=== PATIENT | female | born 1955 | race Caucasian/White ===

== ENCOUNTER 2023-12-15 14:31 | Emergency (ER) | payer MEDICARE, OTHER, SELFPAY ==
[2023-12-15 14:40] VITALS: BP 102/74
[2023-12-15 15:02] LABS: % Basophils 0.4 % (0-2); % Eosinophils 0.5 % (0-6); % Immature Granulocytes 0.3 % (0-0.5); % Monocytes 6.3 % (1.7-9.3); % Neutrophils 64.5 % (42.2-75.2); Absolute Lymphocytes 2.1 10^3/uL (1.2-3.4); Absolute Monocytes 0.5 10^3/uL (0.1-0.6); Absolute Neutrophils 4.9 10^3/uL (1.4-6.5); Hematocrit 34.9 % (37.0-47.0); Hemoglobin 12.6 g/dL (12.0-16.0); Mean Corp Hgb Conc. 36.1 g/dL (33.0-37.0); Mean Corpuscular Hgb 30.6 pg (27.0-31.0); Mean Corpuscular Volume 84.7 fL (81.0-99.0); Mean Platelet Volume 9.5 fL (7.4-10.4); Nucleated Red Blood Cells % 0 %; Platelet Count 286 10^3/uL (130-400); Red Blood Cell Count 4.12 10^6/uL (4.20-5.40); Red Cell Dist. Width 12.7 % (11.5-14.5); White Blood Cell Count 7.6 10^3/uL (4.8-10.8)
[2023-12-15 15:18] LABS: ALT (SGPT) 33 U/L (0-35); AST (SGOT) 42 U/L (14-36); Albumin 4.5 g/dl (3.5-5.0); Alkaline Phosphatase 140 U/L (38-126); Blood Urea Nitrogen 23 mg/dl (7-17); Calcium 9.4 mg/dl (8.4-10.2); Carbon Dioxide 20 mmol/L (22-30); Chloride 104 mmol/L (98-107); Glucose 142 mg/dl (70-99); Potassium 3.1 mmol/L (3.5-5.1); Sodium 133 mmol/L (135-145); Total Bilirubin 0.8 mg/dl (0.2-1.3); Total Protein 7.3 g/dl (6.3-8.2); eGFR > 60.00
[2023-12-15 15:22] LABS: COVID-19 Antigen Negative (Negative)
[2023-12-15 15:48] LABS: TSH Reflex To Free T4 1.36 uIU/ml (0.47-4.68)
[2023-12-15 16:00] VITALS: BMI 27.9
[2023-12-15] MEDS: KCL ELIXIR 40 MEQ PO (16:39)
--- NOTE | 2023-12-15 17:15 | ED.GENMED ---
History of Present Illness
General
Chief Complaint: Anxiety
Source: patient and spouse
Exam Limitations: none
Time Seen by Provider: 12/15/23 16:12
Travel History
Have you had any contact with someone who has COVID-19?: No
Do you have any symptoms of coronavirus? Fever > 100 degrees, chills, cough, shortness of breath, sore throat, loss of taste or smell, muscle aches, or headache?: No
History of Present Illness
History of Present Illness:
This is a 68-year-old female who was getting her hair done when she started to feel nervous and shaky and felt overwhelmed. She states she has been under a lot of stress recently because of her medical problems. Patient states that as she
sat there for a long period of time she just cannot handle it anymore. Patient states she felt like this for about an hour before she said she had to get out of there. She does admit to nausea and vomiting feels much better on my evaluation after
she vomited. Patient does have a history of vertigo. Patient states that she feels much better laying flat. She denies room spinning dizziness however. No motor weakness. No headache. No palpitations. No chest pain. No shortness of breath.
Past History
Past History
ED Past Medical History: HTN and Other (Vertigo)
ED Past Surgical History: Gynecological
Social History
Tobacco: Non-smoker
Alcohol: None
Drug: None
Personal:
Living: with family
Phy Exam
Physical Exam
Physical Exam:
CONSTITUTIONAL Patient alert and oriented to person, place and time. Well-appearing. Vital signs reviewed.
HEAD atraumatic, normocephalic.
EYES eyelids normal to inspection, Pupils equally round and reactive to light, Extraocular muscles intact, Conjunctiva normal, Sclera normal.
NECK normal range of motion, Trachea midline, no jugular venous distention.
RESPIRATORY CHEST No respiratory distress noted, Chest expansion equal, Bilateral breath sounds clear.
CARDIOVASCULAR regular rate and rhythm, Heart sounds normal.
ABDOMEN abdomen nontender, Bowel sounds normal. No distention.
BACK normal inspection, no obvious deformities
UPPER EXTREMITY range of motion normal, Motor strength normal, no cyanosis, no edema.
LOWER EXTREMITY range of motion normal, Motor strength normal, no cyanosis, no edema.
NEURO Speech normal, No focal motor deficits, Ritika coma scale 15, Memory normal, Cranial Nerves intact to screening exam. Normal [id number].. No pronator drift
SKIN skin warm, dry, and normal in color.
PSYCHIATRIC patient oriented to person place and time, Normal affect.
Course
Orders/Labs/Results
Orders:
Orders
12/15/23 14:54
COVID-19 Antigen Urgent
Source: Nasal Swab
Complete Blood Count/With Diff Urgent
Comprehensive Metabolic Panel Urgent
TSH Reflex To Free T4 Urgent
Influenza A+B Rapid Molecular Urgent
WILI Source: Nasal Swab
Specimen Description:
12/15/23 16:23
Electrocardiogram (*1) Urgent
Reason for Study: Other
Other Reason for Exam: nausea
EKG- Treatment ONCE
12/15/23 16:28
Potassium Chloride 10% Elixir [KCl Elixir] 40 meq PO NOW STA
Abnormal Lab Results
12/15/23
14:54
RBC 4.12 L 10^6/uL
(4.20-5.40)
Hct 34.9 L %
(37.0-47.0)
Sodium 133 L mmol/L
(135-145)
Potassium 3.1 L mmol/L
(3.5-5.1)
Carbon Dioxide 20 L mmol/L
(22-30)
BUN 23 H mg/dl
(7-17)
Glucose 142 H mg/dl
(70-99)
AST 42 H U/L
(14-36)
Alkaline Phosphatase 140 H U/L
(38-126)
12/15/23 14:54
12/15/23 14:54
Vital Signs
Initial and Last Documented VS:
Initial Vital Signs
Temp Pulse Resp BP Pulse Ox
97.7 F 69 20 102/74 100
12/15/23 14:40 12/15/23 14:40 12/15/23 14:40 12/15/23 14:40 12/15/23 14:40
Last Documented Vital Signs
Temp Pulse Resp BP Pulse Ox
97.7 F 69 20 102/74 100
12/15/23 14:40 12/15/23 14:40 12/15/23 14:40 12/15/23 14:40 12/15/23 14:40
MDM/Problems Addressed
Differential Diagnosis Includes:
Vertigo, anxiety attack, arrhythmia, dehydration, CVA
MDM/Problems Addressed:
Vomiting, anxiety, hypokalemia, dehydration
*Pulse Oximetry
Patient hypoxic: no
*EKG
Interpreted by ED Provider?: Yes
Rate: normal
Rhythm: sinus
[place]: normal axis
QRS Pattern: normal QRS
Ischemia: non-specific ST changes
*Critical Care Note
Total Time (30-74mins, 75-104mins- exclusive of procedures): Not Applicable
Data Reviewed
Source: patient and spouse
Prescriptions/Medications Considered But Not Given:
Considered meclizine but patient would like to refrain from medications as she states she is sensitive and feeling better
Further Testing Considered But Not Given:
Consider head CT but no focal findings. No focal neurologic symptoms actually.
Patient Management
Escalation/DeEscalation of care consider admission/obs:
Patient peers well. Normal neuroassessment. No clinical concern for acute coronary event or CVA. Question whether this is a mild vertigo from having her head in a position related to getting her hair done. I did offer medications but patient
would like to hold off. Replace her potassium. She is on hydrochlorothiazide. Will replace potassium and provide supplement for the next 1 week but advised her to follow-up with her PCP
ED Attending Note
-
Portions of this chart may have been created with voice recognition software.� Occasional wrong word or��sound alike� substitutions may have occurred due to the inherent limitations of voice recognition software.
Discharge Plan
Departure
Patient Disposition: Home (Routine Discharge)
Date of Disposition: 12/15/23
Time of Disposition: 17:22
Patient with high blood pressure during this ER visit?: No
Discharge Problem:
Acute hypokalemia, Vomiting
Instructions: Hypokalemia (DC)
Prescriptions:
New
potassium chloride [Klor-Con M20] 20 mEq tablet,ER particles/crystals
20 meq PO DAILY Qty: 7 0RF
Referrals:
Gretchen Vazquez CRNP [Family Provider] -
Activity Restrictions/Additional Instructions:
Please maintain proper hydration. Please be sure to see your doctor in the next 3 to 5 days for follow-up and reevaluation to recheck your potassium. Return for chest pain, shortness of breath, palpitations, weakness of any kind or any other
concerns
Interventions
Interventions:
*Risk Screen - Suicide Last Done: 12/15/23 16:00
*General Assessment Last Done: 12/15/23 16:00
*Neglect/Abuse Screening Last Done: 12/15/23 16:00
ED- Fall Risk Assessment Last Done: 12/15/23 16:00
*ED COVID-19 Vaccine History Last Done: 12/15/23 14:40
ED-Psychological Assessment Last Done: 12/15/23 16:00
[2023-12-15] MEDS: KCL 40 MEQ PO (17:39)
== END 2023-12-15 17:57 | disposition home or self-care (01) ==
LOC: EMR 14:31
PROVIDERS: Emergency Medicine; EMERGENCY PHYSICIAN Emergency Medicine; FAMILY PHYSICIAN Nurse Practitioner Family
DX: E87.6 Hypokalemia (principal); R11.2 Nausea with vomiting, unspecified; I10 Essential (primary) hypertension
CPT/HCPCS: 99283; 80053; 84443; 85025; 87502; 87811; 93005

== ENCOUNTER 2024-03-08 23:18 | Emergency (ER) | payer MEDICARE, OTHER, SELFPAY ==
[2024-03-08 23:30] VITALS: BP 189/64
[2024-03-09 02:58] VITALS: BP 161/91
--- NOTE | 2024-03-09 03:02 | ED.GENMED ---
History of Present Illness
General
Chief Complaint: Esophageal Problem
Source: patient
Exam Limitations: none
Time Seen by Provider: 03/09/24 02:44
Travel History
Have you had any contact with someone who has COVID-19?: No
Do you have any symptoms of coronavirus? Fever > 100 degrees, chills, cough, shortness of breath, sore throat, loss of taste or smell, muscle aches, or headache?: No
History of Present Illness
History of Present Illness:
This is a 68 year old female that comes in with c/o feeling like her pill was stuck in her throat. States that she had a tooth extracted on Wednesday. Patient was placed on Amoxicillin TID. State that last night about 5:15pm she took her dose without
any food. States that she felt nauseated and felt that she couldn't get the pill down. States that she has vomited since and is now feeling better. Denies any fever, chills, chest pain, SOB, abd pain, diarrhea, headache, dizziness, urinary burning,
Past History
Past History
ED Past Medical History: HTN, Hypercholesterolemia, Psychiatric (Anxiety) and Other (Vertigo)
ED Past Surgical History: Gynecological (D&C)
Social History
Tobacco: Non-smoker
Alcohol: None
Drug: None
Personal:
Living: with family
Review of Systems
Review of Systems
All Other Systems: ROS reviewed and negative except as documented in HPI and ROS
Constitutional: Reports no symptoms; Denies fever or chills
EENT: Reports other ([place] like pill was stuck in her throat)
Respiratory: Reports no symptoms; Denies cough or trouble breathing
Cardiac: Reports no symptoms; Denies chest pain
ABD/GI: Reports vomiting; Denies abdominal pain, nausea or diarrhea
: Reports no symptoms; Denies dysuria, frequency or urgency
Musculoskeletal: Reports no symptoms
Skin: Reports no symptoms
Neurological: Reports no symptoms; Denies dizzy or headache
Psychiatric: Reports no symptoms
Phy Exam
General Physical Exam
General Presentation: well appearing and no apparent distress
General age: appears stated age
General Skin: warm and dry
General Habitus: normal
General Mental: alert
General Hydration: appears well hydrated
ENT Exam
ENT Exam: TM's normal, pharynx normal and neck supple
Eye Exam
Eye Exam: EOMI
Cardiovascular Exam
Cardiovascular Exam: regular rate/rhythm and no murmur
Pulmonary Exam
Pulmonary Exam: lungs clear, no respiratory distress, no rales, chest non tender, no crackles, no rhonchi, no wheezing and no cough
Musculoskeletal Exam
Musculoskeletal Exam: full ROM and no edema
Skin Exam
Skin Exam: normal color, warm/dry, no rash and no petechia
Psychiatric Exam
Psychiatric Exam: normal mood/affect
Course
Vital Signs
Initial and Last Documented VS:
Initial Vital Signs
Temp Pulse Resp BP Pulse Ox
97.8 F 74 24 189/64 99
03/08/24 23:30 03/08/24 23:30 03/08/24 23:30 03/08/24 23:30 03/08/24 23:30
Last Documented Vital Signs
Temp Pulse Resp BP Pulse Ox
97.5 F 71 18 161/91 100
03/09/24 02:58 03/09/24 02:58 03/09/24 02:58 03/09/24 02:58 03/09/24 02:58
MDM/Problems Addressed
Differential Diagnosis Includes:
Anxiety, Pill stock in the esophagus
Patient has been drinking fluid and states that she is feeling so much better. States that she did not take the pill with food and thinks this upset her stomach. Encouraged patient to call her dentist tomorrow and see if she has been on the
antibiotic long enought and can stop since this is upsetting her stomach. Patient to return with any concerns.
MDM/Problems Addressed:
NA
Acute Exacerbation and/or Progression of Chronic Illness:
NA
*Pulse Oximetry
Patient hypoxic: no
*EKG
Interpreted by ED Provider?: NA
Rate: EKG- N/A
*Feed Crusher Interpretation
Rate: Feed Crusher- N/A
*Critical Care Note
Total Time (30-74mins, 75-104mins- exclusive of procedures): Not Applicable
ED Attending Note
-
Portions of this chart may have been created with voice recognition software.� Occasional wrong word or��sound alike� substitutions may have occurred due to the inherent limitations of voice recognition software.
Discharge Plan
Departure
Patient Disposition: Home (Routine Discharge)
Date of Disposition: 03/09/24
Time of Disposition: 03:08
Patient with high blood pressure during this ER visit?: Yes
Condition: Good
Covid-19: Not Applicable
Discharge Problem:
Nausea & vomiting, abdominal Upset due to medication
Instructions: BLOOD PRESSURE
Prescriptions:
No Action
potassium chloride [Klor-Con M20] 20 mEq tablet,ER particles/crystals
20 meq PO DAILY Qty: 7 0RF
Referrals:
Gretchen Vazquez CRNP [Family Provider] - Call in 1-3 days for appt
Activity Restrictions/Additional Instructions:
As discussed, please call your dentist tomorrow and see if you can stop taking the antibiotics. Please try and eat before taking any medicaiton and it needed you can always ask for liquid. IF YOU HAVE ANY OTHER CONCERNS PLEASE RETURN TO THE
EMERGENCY ROOM.
Interventions
Interventions:
*Risk Screen - Suicide Last Done: 03/08/24 23:30
*General Assessment Last Done: 03/09/24 02:58
*Neglect/Abuse Screening Last Done: 03/08/24 23:30
ED- Fall Risk Assessment Last Done: 03/09/24 02:58
*ED COVID-19 Vaccine History Last Done: 03/08/24 23:30
NO-Eeazgc-Kwulkxucrk Assessment Last Done: 03/09/24 01:35
ED-EENT Assessment Last Done: 03/09/24 01:35
Discharge Date and Time
Print Language: BENGALI
== END 2024-03-09 03:23 | disposition home or self-care (01) ==
LOC: EMR 23:18
PROVIDERS: EMERGENCY PHYSICIAN Emergency Medicine; FAMILY PHYSICIAN Nurse Practitioner Family
DX: R11.2 Nausea with vomiting, unspecified (principal); K30 Functional dyspepsia; T50.905A Adverse effect of unspecified drugs, medicaments and biological substances, initial encounter; Y92.9 Unspecified place or not applicable; I10 Essential (primary) hypertension; E78.00 Pure hypercholesterolemia, unspecified; F41.9 Anxiety disorder, unspecified
CPT/HCPCS: 99282

== ENCOUNTER → 2024-03-28 09:01 | Outpatient (REF) | payer MEDICARE, OTHER, SELFPAY | LOC: RAD 09:01 | PROVIDERS: ATTENDING PHYSICIAN Physician Assistant Medical | DX: R47.02 Dysphasia (principal) | CPT/HCPCS: 74240 ==

== ENCOUNTER → 2024-05-23 06:31 | Day surgery (SDC) | payer MEDICARE, OTHER, SELFPAY | LOC: GI 06:31 | PROVIDERS: ATTENDING PHYSICIAN Internal Medicine | DX: R13.10 Dysphagia, unspecified (principal); K44.9 Diaphragmatic hernia without obstruction or gangrene | CPT/HCPCS: 43239; 88305 ==

== ENCOUNTER → 2024-12-21 08:33 | Outpatient (REF) | payer MEDICARE, OTHER, SELFPAY | LOC: RAD 08:33 | PROVIDERS: ATTENDING PHYSICIAN Obstetrics & Gynecology Gynecology | DX: N95.0 Postmenopausal bleeding (principal) | CPT/HCPCS: 76830; 76856 ==

== ENCOUNTER → 2025-03-23 10:00 | Outpatient (REF) | payer MEDICARE, OTHER, SELFPAY | LOC: CLAB 10:00 | PROVIDERS: ATTENDING PHYSICIAN Obstetrics & Gynecology Gynecology | DX: N95.0 Postmenopausal bleeding (principal); N84.0 Polyp of corpus uteri | CPT/HCPCS: 88305 ==